=== PATIENT | male | born 1965 | race Caucasian/White ===

== ENCOUNTER 2016-10-28 03:36 | Observation (INO) | payer BC ==
[2016-10-28] MEDS ORDERED: HYDROmorphone* 1 MG/ML 1 ML CARPUJECT IV ONE (03:45)
[2016-10-28] MEDS ORDERED: Ondansetron INJ* 2 MG/ML VIAL IV ONE (03:45)
[2016-10-28] MEDS ORDERED: LORazepam INJ* 2 MG/ML 1 ML VIAL IV PUSH ONE (03:49)
[2016-10-28] MEDS ORDERED: Pantoprazole IV* 40 MG IV ONE (03:50)
[2016-10-28] MEDS: NS 0.9% 1000 ML* 2,000 ML IV ONE ×2 (03:55→07:38)
[2016-10-28 04:02] LABS: Hematocrit 43 % (42-52); Hemoglobin 14.9 g/dl (14.0-18.0); Mean Corpuscular HGB Conc 35 g/dl (31-36); Mean Corpuscular Hemoglobin 29 pg (27-31); Mean Corpuscular Volume 82 fL (80-94); Mean Platelet Volume 7 um3 (7.4-10.4); Red Cell Distribution Width 15 % (10.5-15); White Blood Count 10.2 10^3/ul (3.5-10.8)
[2016-10-28 04:30] LABS: ALT 14 U/L (7-52); AST 15 U/L (13-39); Albumin 3.9 g/dL (3.2-5.2); Alkaline Phosphatase 74 U/L (34-104); Amylase 31 U/L (29-103); Anion Gap 6 mmol/L (2-11); BUN/Creatinine Ratio 8.5 (8-20); Blood Urea Nitrogen 10 mg/dL (6-24); CO2 Carbon Dioxide 27 mmol/L (22-32); Calcium 9.1 mg/dL (8.6-10.3); Chloride 100 mmol/L (101-111); EGFR African American 85.2 (>60); EGFR Non-African American 66.3 (>60); Glucose 104 mg/dL (70-100); Lipase < 10 U/L (11.0-82.0); Potassium 3.5 mmol/L (3.5-5.0); Sodium 133 mmol/L (133-145); Total Protein 6.9 g/dL (6.4-8.9)
[2016-10-28 04:31] LABS: Troponin I 0.01 ng/mL (<0.04)
[2016-10-28] MEDS ORDERED: Iohexol 350* (CONTRAST) 500 ML MDV IV ONE (04:33)
[2016-10-28 04:39] LABS: TSH (Thyroid Stimulating Horm) 4.61 mcIU/mL (0.34-5.60)
--- NOTE | 2016-10-28 07:33 | ED ---
Kimberly Marie Emily, scribed for Darrell Kapoor MD on 10/28/16 at 0443 . HPI Chest Pain - HPI Summary HPI Summary: This patient is a 51 year old M BIBA to [facility] accompanied by fiance with a chief complaint of CP since 0000. Was awoken at midnight by pain, which worsened MANAGER LIGHTING. Describes the pain much higher and different pain than previous GERD. The CC is described as pulsating, pressing pain in central chest which does not radiate to back. The patient rates the pain 10/10 in severity. Patient denies nausea, SOB, melena, hematochezia, abd pain, and tearing sensation. PMHx includes HTN, indigestion. FHx of heart disease. Patient denies hx of NM. - History of Current Complaint Chief Complaint: EDChestPainROMI Time Seen by Provider: 10/28/16 03:45 Hx Obtained From: Patient, EMS Onset/Duration: Started Hours Ago, Still Present Timing: Constant, Lasting Hours Initial Severity: Severe Current Severity: Severe Pain Intensity: 10 Pain Scale Used: 0-10 Numeric Chest Pain Location: Discrete at: - Central Character: Pressure/Squeezing, Other: - Pulsating Associated Signs and Symptoms: Positive: Other: - Negative nausea, SOB, melena, hematochezia, abd pain, and tearing sensation. - Allergy/Home Medications Allergies/Adverse Reactions: Allergies Allergy/AdvReac Type Severity Reaction Status Date / Time No Known Allergies Allergy Verified 12/23/14 10:49 PMH/Surg Hx/FS Hx/Imm Hx Previously Healthy: Yes Endocrine/Hematology History: Denies: Hx Diabetes, Hx Thyroid Disease Cardiovascular History: Reports: Hx Hypertension Respiratory History: Denies: Hx Asthma, Hx Chronic Obstructive Pulmonary Disease (COPD) GI History: Reports: Hx Ulcer - gerd History: Denies: Hx Dialysis, Hx Renal Disease Infectious Disease History: No Infectious Disease History: Denies: Hx Hepatitis, Hx Human Immunodeficiency Virus (HIV), History Other Infectious Disease, Traveled Outside the [place] in Last 30 Days - Family History Known Family History: Negative: Cardiac Disease, Diabetes - Social History Occupation: Employed Part-time Lives: With Family Alcohol Use: Rare Substance Use Type: Reports: None Hx Tobacco Use: Yes Smoking Status (MU): Light Every Day Tobacco Smoker Type: Cigarettes Amount Used/How Often: 1 ppd Review of Systems Positive: Chest Pain, Other - Negative tearing sensation Negative: Shortness Of Breath Positive: Other - Negative melena, hematochezia. Negative: Abdominal Pain, Nausea All Other Systems Reviewed And Are Negative: Yes Physical Exam - Summary Physical Exam Summary: The patient is well-nourished in moderate pain. The skin is warm and skin color reflects adequate perfusion. Diaphoretic. HEENT: The head is normocephalic and atraumatic. The pupils are equal and reactive. The conjunctivae are clear and without drainage. Nares are patent and without drainage. Mouth reveals moist mucous membranes and the throat is without erythema and exudate. The external ears are intact. Neck is supple with full range of motion and non-tender. There are no carotid bruits. There is no neck vein distension. Respiratory: Chest is non-tender. Lungs are clear to auscultation and breath sounds are symmetrical and equal. Cardiovascular: Heart is regular rate and rhythm. There is no murmur or rub auscultated. There is no peripheral edema and pulses are symmetrical and equal. No reproducible pain. No chest wall pain. Abdomen: The abdomen is soft and non-tender. There are normal bowel sounds heard in all four quadrants and there is no organomegaly palpated. No bruit. Musculoskeletal: There is no back pain noted. Extremities are non-tender with full range of motion. There is good capillary refill. There is no peripheral edema or calf tenderness elicited. Neurological: Patient is alert and oriented to person, place and time. The patient has symmetrical motor strength in all four extremities. Cranial nerves are grossly intact. Deep tendon reflexes are symmetrical and equal in all four extremities. Psychiatric: The patient has an appropriate affect and does not exhibit any anxiety or depression. Triage Information Reviewed: Yes Vital Signs On Initial Exam: Initial Vitals Temp Pulse Resp BP Pulse Ox 98.6 F 85 17 118/70 96 10/28/16 03:37 10/28/16 03:37 10/28/16 03:37 10/28/16 03:37 10/28/16 03:37 Vital Signs Reviewed: Yes Diagnostics - Vital Signs Vital Signs Temp Pulse Resp BP Pulse Ox 10/28/16 04:04 22 10/28/16 03:57 21 10/28/16 03:37 98.6 F 85 17 118/70 96 - Laboratory Lab Results: Lab Results 0910/28/16 10/28/16 Range/Units 03:42 03:42 03:42 WBC 10.2 (3.5-10.8) 10^3/ul RBC 5.20 (4.0-5.4) 10^6/ul Hgb 14.9 (14.0-18.0) g/dl Hct 43 (42-52) % MCV 82 (80-94) fL MCH 29 (27-31) pg MCHC 35 (31-36) g/dl RDW 15 (10.5-15) % Plt Count 340 (150-450) 10^3/ul MPV 7 L (7.4-10.4) um3 Neut % (Auto) 71.7 (38-83) % Lymph % (Auto) 16.2 L (25-47) % [place] % (Auto) 9.3 H (1-9) % Eos % (Auto) 1.6 (0-6) % Baso % (Auto) 1.2 (0-2) % Absolute Neuts (auto) 7.3 (1.5-7.7) 10^3/ul Absolute Lymphs (auto) 1.7 (1.0-4.8) 10^3/ul Absolute Monos (auto) 1.0 H (0-0.8) 10^3/ul Absolute Eos (auto) 0.2 (0-0.6) 10^3/ul Absolute Basos (auto) 0.1 (0-0.2) 10^3/ul Absolute Nucleated RBC 0 10^3/ul Nucleated RBC % 0 INR (Anticoag Therapy) (0.89-1.11) APTT (26.0-36.3) seconds Sodium 133 (133-145) mmol/L Potassium 3.5 (3.5-5.0) mmol/L Chloride 100 L (101-111) mmol/L Carbon Dioxide 27 (22-32) mmol/L Anion Gap 6 (2-11) mmol/L BUN 10 (6-24) mg/dL Creatinine 1.17 (0.67-1.17) mg/dL Est GFR ( Amer) 85.2 (>60) Est GFR (Non-Af Amer) 66.3 (>60) BUN/Creatinine Ratio 8.5 (8-20) Glucose 104 H (70-100) mg/dL Lactic Acid (0.5-2.0) mmol/L Calcium 9.1 (8.6-10.3) mg/dL Total Bilirubin 0.60 (0.2-1.0) mg/dL AST 15 (13-39) U/L ALT 14 (7-52) U/L Alkaline Phosphatase 74 (34-104) U/L Troponin I 0.01 (<0.04) ng/mL B-Natriuretic Peptide 17 ( - 100) pg/mL Total Protein 6.9 (6.4-8.9) g/dL Albumin 3.9 (3.2-5.2) g/dL Globulin 3.0 (2-4) g/dL Albumin/Globulin Ratio 1.3 (1-3) Amylase 31 (29-103) U/L Lipase < 10 L (11.0-82.0) U/L TSH 4.61 (0.34-5.60) mcIU/mL 10/28/16 10/28/16 Range/Units 03:42 03:42 WBC (3.5-10.8) 10^3/ul RBC (4.0-5.4) 10^6/ul Hgb (14.0-18.0) g/dl Hct (42-52) % MCV (80-94) fL MCH (27-31) pg MCHC (31-36) g/dl RDW (10.5-15) % Plt Count (150-450) 10^3/ul MPV (7.4-10.4) um3 Neut % (Auto) (38-83) % Lymph % (Auto) (25-47) % [place] % (Auto) (1-9) % Eos % (Auto) (0-6) % Baso % (Auto) (0-2) % Absolute Neuts (auto) (1.5-7.7) 10^3/ul Absolute Lymphs (auto) (1.0-4.8) 10^3/ul Absolute Monos (auto) (0-0.8) 10^3/ul Absolute Eos (auto) (0-0.6) 10^3/ul Absolute Basos (auto) (0-0.2) 10^3/ul Absolute Nucleated RBC 10^3/ul Nucleated RBC % INR (Anticoag Therapy) 0.92 (0.89-1.11) APTT 27.9 (26.0-36.3) seconds Sodium (133-145) mmol/L Potassium (3.5-5.0) mmol/L Chloride (101-111) mmol/L Carbon Dioxide (22-32) mmol/L Anion Gap (2-11) mmol/L BUN (6-24) mg/dL Creatinine (0.67-1.17) mg/dL Est GFR ( Amer) (>60) Est GFR (Non-Af Amer) (>60) BUN/Creatinine Ratio (8-20) Glucose (70-100) mg/dL Lactic Acid 1.3 (0.5-2.0) mmol/L Calcium (8.6-10.3) mg/dL Total Bilirubin (0.2-1.0) mg/dL AST (13-39) U/L ALT (7-52) U/L Alkaline Phosphatase (34-104) U/L Troponin I (<0.04) ng/mL B-Natriuretic Peptide ( - 100) pg/mL Total Protein (6.4-8.9) g/dL Albumin (3.2-5.2) g/dL Globulin (2-4) g/dL Albumin/Globulin Ratio (1-3) Amylase (29-103) U/L Lipase (11.0-82.0) U/L TSH (0.34-5.60) mcIU/mL Result Diagrams: 10/28/16 03:42 10/28/16 03:42 Lab Statement: Any lab studies that have been ordered have been reviewed, and results considered in the medical decision making process. - Radiology CXR Xray Interpretation: No Acute Changes Radiology Interpretation Completed By: ED Physician - CT Chest A/P CTA CT Interpretation: No Acute Changes CT Interpretation Completed By: Radiologist - Chest: No pulmonary embolism. No aortic dissection or aneurysm. No pneumonia or pleural effusions. Minimal emphysematous changes. Abdomen/Pelvis: No aortic dissection or aneurysm. No bowel obstruction, colitis, frees fluid or free air. Normal appendix. Unremarkable pancreas, kidneys and gallbladder. - EKG 0336 Cardiac Rate: NL - 83 PM EKG Rhythm: Sinus Rhythm EKG Interpretation: No STEMI, no ST elevation 0356 Cardiac Rate: NL - 78 BPM EKG Rhythm: Sinus Rhythm EKG Interpretation: Nml axis. Non-specific changes in 2, 3, and ABL.No ST elevation. Re-Evaluation - Re-Evaluation First Eval Re-Evaluation Time: 06:56 Change: Improved - Pt is pain free. Reviewed lab results with patient's delisae. Chest Pain Course/Dx - Course Course Of Treatment: This patient is a 51 year old M BIBA to [facility] accompanied by fiance with a chief complaint of CP since 0000. Was awoken at midnight by pain, which worsened MANAGER LIGHTING. Describes the pain much higher and different pain than previous GERD. The CC is described as pulsating, pressing pain in central chest which does not radiate to back. The patient rates the pain 10/10 in severity. Patient denies nausea, SOB, melena, hematochezia, abd pain, and tearing sensation. PMHx includes HTN, indigestion. FHx of heart disease. Patient denies hx of NM. Physical Exam Findings. Moderate pain. Diaphoretic. No chest wall pain. No reproducible pain. No abd bruit. Medical Decision Making. An EKG at 0336 reveals no STEMI, nml sinus rhythm at 83 BPM, and no ST elevation. An EKG at 0356 reveals nml sinus rhythm at 78 BPM, nml axis, non- specific changes in 2,3, and ABL, and no ST elevation. CXR read by ED physician is normal. Chest A/P CTA read by radiologist. Chest: No pulmonary embolism. No aortic dissection or aneurysm. No pneumonia or pleural effusions. Minimal emphysematous changes. Abdomen/Pelvis: No aortic dissection or aneurysm. No bowel obstruction, colitis, frees fluid or free air. Normal appendix. Unremarkable pancreas, kidneys and gallbladder. ED physician has reviewed this radiology report and agrees. In the ED course the patient was given Diaudid, Ativan inj, Zofran inj,Protonix IV, and fluids. We discussed patient care with Dr. Jacobs (hospitalist) at 0658 and they recommended to admit the patient. Patient will be admitted. The patient is agreeable with this plan. - Chest Pain Differential Diagnosis/HQI/PQRI: Acute NM, ACS, Aortic Aneurysm, CHF, GI Disease , Pulmonary Embolism - Diagnoses Provider Diagnoses: Chest pain - Provider Notifications Discussed Care Of Patient With: Sonja Jacobs - [facility] Time Discussed With Above Provider: 06:58 Instructed by Provider To: Admit As Inpatient - Critical Care Time Critical Care Time: 30-74 min - 30 minutes Discharge - Discharge Plan Condition: Stable Disposition: ADMITTED TO [facility] Referrals: Sharath Riojas MD [Primary Care Provider] - The documentation as recorded by the Kimberly santizo Emily accurately reflects the service I personally performed and the decisions made by me, Darrell Kapoor MD.
[2016-10-28] MEDS ORDERED: Acetaminophen TAB* 325 MG PO PRN (08:25)
[2016-10-28] MEDS ORDERED: Ibuprofen TAB* 400 MG PO PRN (08:33)
[2016-10-28] MEDS ORDERED: Mouth Piece, Nicotine* 1 EACH CARTRIDGE INH PRN (08:41)
[2016-10-28] MEDS ORDERED: Nicotine Inhaler* 10 MG AMP INH PRN (08:41)
--- NOTE | 2016-10-28 08:59 | RAD ---
INDICATION: Midsternal chest pain COMPARISON: None. TECHNIQUE: Single AP portable view of the chest was obtained. FINDINGS: Image quality is compromised due to the relative inferiority of a portable chest x-ray. The heart and mediastinum exhibit normal size and contour. The lungs are grossly clear. There is no evidence of a large pleural effusion. Visualized bones are normal for the patient's age. IMPRESSION: No radiographic evidence for acute cardiopulmonary abnormality on this portable chest x-ray.
[2016-10-28 09:03] LABS: Cholesterol 152 mg/dL; HDL Cholesterol 32.9 mg/dL; LDL Cholesterol 99 mg/dL; Triglycerides 102 mg/dL
--- NOTE | 2016-10-28 09:25 | RAD ---
STUDY: CT angiography of the chest, abdomen and pelvis. INDICATION: Mid chest pain that woke the patient from sleep COMPARISON: None. TECHNIQUE: Multidetector CT angiography of the chest, abdomen and pelvis were obtained from the lung apices to the ischial tuberosities after the intravenous injection of 100 mL Omnipaque 350. Reformats were created in the coronal and sagittal planes. 3-D vascular imaging was created from the source images and reviewed as well. ANGIOGRAPHIC FINDINGS: There are no filling defects of the central or lobular pulmonary arteries to indicate acute pulmonary embolism. There is no pathologic aneurysmal dilatation of the thoracic aorta or appearance of acute aortic dissection. Best depicted on the sagittal plane images (image 64 of 126) there is narrowing at the origin of the left common carotid artery by approximately 50% relative to the more distal portion of the vessel. There is calcified atherosclerosis of the infrarenal abdominal aorta but patency is maintained. There is no pathologic aneurysmal dilatation or appearance of acute dissection. The branch vessels off of the abdominal aorta are adequately patent. In-line flow is seen as far as the bilateral common femoral arteries. NON ANGIOGRAPHIC FINDINGS: Chest: There is mild increased density of the pulmonary parenchyma diffusely. There is no focal consolidation or suspicious nodules. Hypoventilatory changes are noted the bilateral dependent lung bases. There are centrilobular emphysematous changes at the lung apices. There is no mediastinal or hilar lymphadenopathy. The heart is grossly normal in appearance. Abdomen \T\ Pelvis: The liver, spleen, pancreas and adrenal glands are grossly normal in appearance. The gallbladder is normal. The kidneys are normal in appearance without focal mass, calcification or signs of hydronephrosis. The renal cortices enhance promptly and symmetrically on arterial phase imaging. Evaluation of the gastrointestinal tract is limited without oral contrast. The small and large bowel are not distended. The appendix is normal in appearance with gas partially filling the lumen (axial image 203). There is no gross retroperitoneal or mesenteric lymphadenopathy. The pelvic viscera is normal in appearance. Multilevel degenerative changes of the thoracic and lumbar spine include mild loss of intervertebral disc height.There are no sinister bone lesions. IMPRESSION: 1. No CT evidence of centrilobular pulmonary embolism or acute aortic dissection. 2. Potential 50% narrowing at the origin of the left common carotid artery which exhibits a chronic appearance. Please correlate to signs or symptoms of carotid artery insufficiency. On a nonemergent basis correlation can be made to carotid ultrasound to determine if there are signs of relatively attenuated flow in the left carotid artery compared to the right. 3. Additional chronic and degenerative changes noted in the body the report unlikely to be directly related to the patient's acute presentation.
[2016-10-28] MEDS: Omeprazole CAP* 20 MG PO SCH (11:33)
[2016-10-28] MEDS: Hydrochlorothiazide TAB* 25 MG PO SCH (11:33)
--- NOTE | 2016-10-28 11:55 | HP ---
CC: Dr. Riojas * HISTORY AND PHYSICAL: DATE OF ADMISSION: 10/28/16 PRIMARY CARE PROVIDER: Dr. Riojas. CHIEF COMPLAINT: Chest pain. HISTORY OF PRESENT ILLNESS: Mr. Rodríguez is a 51-year-old male who has a history of hypertension, hyperlipidemia, multiple sclerosis that had not been treated in many years and ongoing tobacco abuse. He presents to the emergency room with complaints of severe chest pain. The patient states at approximately midnight on the day of admission he woke up with what he felt was heartburn. By approximately 2 a.m. he started feeling as if he is having very strong squeezing contractions in his chest and neck. The patient states that it has became so severe that he presented to the emergency room at approximately 3:30. The patient took morphine and nitroglycerin without any improvement in his pain. In the ER he also received Dilaudid and Ativan. The patient's significant other states that when he received the Dilaudid the pain went away. The concern initially was that the patient may have had been an aortic dissection; therefore, he went emergently for CTA of the chest, abdomen, and pelvis which was reportedly negative for dissection. The patient states he has never had any pain like this in the past. He does have a history of recent long- distance travel, in that he and his significant other recently went to the [facility] approximately 3 weeks ago. He denies any shortness of breath with the chest discomfort that he was having. He denied any nausea. He was noted to be markedly diaphoretic. PAST MEDICAL HISTORY: 1. Hypertension. 2. Hyperlipidemia. 3. History of multiple sclerosis. 4. Ongoing tobacco abuse. 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 MEDICATIONS: 1. Aspirin 81 mg p.o. daily. 2. Protonix 40 mg p.o. daily. 3. Hydrochlorothiazide 25 mg p.o. daily. 4. Ibuprofen 400 mg p.o. daily p.r.n. pain. 5. Lipitor 20 mg p.o. daily. ALLERGIES: No known drug allergies. FAMILY HISTORY: Mom is reportedly living, but he is unaware of her health as he has not in contact with her. Dad is living, he has hereditary hemorrhagic telangiectasia. SOCIAL HISTORY: The patient smokes 1 pack per day and has done so for the last 30 years. He does not drink alcohol routinely. 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 He has a domestic partner. Her name is Glo Lu. He has one child from a previous relationship who is 18 years old. REVIEW OF SYSTEMS: Complete 11-system review of systems is obtained. Pertinent positives and negatives are as per HPI and otherwise negative. PHYSICAL EXAMINATION GENERAL: The patient is a well-developed, middle aged male, sitting up in the stretcher; drowsy, but arousable, in no acute distress. VITAL SIGNS: Blood pressure 147/90, pulse 90, respirations 19, temp 98.6, O2 sat 99% on 2 L. HEENT: Pupils equally round and reactive to light. Extraocular muscles are intact. Oropharynx is clear. Oral mucosa is moist. There is no submandibular, cervical, or supraclavicular adenopathy. Thyroid is not enlarged. No thyroid nodules are noted. The patient does have dressing over a portion of the left ear helix. PULMONARY: Lungs are clear to auscultation, but breath sounds are diminished throughout. CARDIAC: Normal S1 and S2. Regular rate and rhythm. I do not appreciate any murmurs. There is no lower extremity edema. There is no pain to palpation of the sternum or costochondral joints. ABDOMEN: Bowel sounds are present. Abdomen is soft, nontender, nondistended. MUSCULOSKELETAL: There is no cyanosis or clubbing of the digits. There is full active range of motion of all 4 extremities. NEURO: Cranial nerves II through XII are grossly intact. Sensation is intact to light touch throughout. Strength is 5/5 and symmetric in both upper and lower extremities bilaterally. SKIN: Warm and dry. There are no rashes. PSYCH: The patient is drowsy, but is able to stay awake during our conversation and answered questions appropriately. LABORATORY DATA/DIAGNOSTIC STUDIES: WBC 10.2, hemoglobin 14.9, hematocrit 43, platelets 340. INR 0.92. Sodium 133, potassium 3.5, chloride 100, CO2 27, BUN 10, creatinine 1.17, glucose 104, lactic acid 1.3, calcium 9.1, bilirubin 0.6, AST 15, ALT 14, alk phos 74. Troponin 0.01 x2. BNP 17, albumin 3.9, amylase 31 , lipase is less than 10, TSH 4.61. EKG reveals normal sinus rhythm without any acute ST-T wave abnormalities. Chest x- ray to my interpretation shows possible atelectasis versus infiltrate at the right base. CTA of the chest, abdomen, and pelvis no pulmonary embolism was identified. No aortic dissection or aneurysm is identified. There is no pneumonia or pleural effusions. There is minimal emphysematous change. There is no aortic dissection or aneurysm noted of the abdominal aorta. No bowel obstruction colitis, free fluid, or free air is noted. ASSESSMENT AND PLAN: Mr. Rodríguez is a 51-year-old male with a history of hypertension, hyperlipidemia, and ongoing tobacco abuse. He presents to the emergency room with complaints of severe chest pain with 2 negative troponins and normal EKG. 1. Chest pain. The etiology of this is likely noncardiac in nature. Patient was ruled out for dissection, pulmonary embolism, and NE essentially at this point. The patient will have one further troponin obtained at approximately 9: 45 this morning. My suspicion is the patient's pain was likely gastrointestinal in nature, however, the patient does have significant risk factors for coronary artery disease in his WILLA risk score is 3 giving him a 13 % risk at 14 days of all cause mortality new or recurrent NE or severe recurrent ischemia requiring urgent revascularization. I have recommended that the patient that he be admitted for a stress test on Sunday. Patient is willing to be admitted today to be monitored overnight, but will reassess tomorrow morning if he is willing to stay another night to get a stress test. In the meantime, the patient will be continued on his usual dose of Lipitor, aspirin, and hydrochlorothiazide for blood pressure control. 2. Hypertension. The patient's blood pressure is mildly elevated at this point. He will be resumed on his hydrochlorothiazide and his blood pressure will be monitored. 3. Hyperlipidemia. Lipid profile will be added to the labs obtained in the ER. He will be continued on his usual dose of Lipitor. 4. Tobacco abuse. Patient will have nicotine replacement with a nicotine inhaler. 5. DVT prophylaxis. According to the Adult Thrombosis Prophylaxis Risk Factor Assessment Guide, the patient has a total risk factor score of 2 making him moderate risk. Patient will utilize ambulation as DVT prophylaxis. 6. Code status is full. Patient's significant other would be his surrogate decision maker. TIME SPENT: 65 minutes was spent admitting this patient. [id number]/[facility] #: [id number] [facility]OSPITALCindy
[2016-10-28] MEDS ORDERED: Atorvastatin* 20 MG TAB PO SCH (21:00)
[2016-10-29 08:43] VITALS: BP 152/90
[2016-10-29] MEDS: Omeprazole CAP* 20 MG PO SCH (08:44)
[2016-10-29] MEDS: Hydrochlorothiazide TAB* 25 MG PO SCH (08:44)
[2016-10-29] MEDS ORDERED: Aspirin EC Low Dose* 81 MG TAB.EC PO SCH (09:00)
--- NOTE | 2016-10-30 05:55 | DS ---
CC: Dr. Riojas * DISCHARGE SUMMARY: DATE OF ADMISSION: 10/28/16 DATE OF DISCHARGE: 10/29/16 PRIMARY CARE PROVIDER: Dr. Riojas. PRINCIPAL DIAGNOSIS: Chest pain. SECONDARY DIAGNOSES: 1. Hypertension. 2. Hyperlipidemia. 3. Tobacco abuse. DISCHARGE MEDICATIONS: 1. Aspirin 81 mg p.o. daily. 2. Protonix 40 mg p.o. daily. 3. Hydrochlorothiazide 25 mg p.o. daily. 4. Ibuprofen 400 mg p.o. daily p.r.n. pain. 5. Lipitor 20 mg p.o. daily. HOSPITAL COURSE: Mr. Rodríguez is a 51-year-old male, who presented to emergency room on the database developer of 10/28/16 with complaints of severe centrally located chest pain. The patient was ruled out for WA and pulmonary embolism. The patient reluctantly agreed to being admitted for monitoring overnight to ensure the chest pain does not come back. At approximately 8:30, I was notified by the patient's nurse that the patient wished to leave the hospital against medical advice. I did talk to him about this the day prior, as he informed me that he would not want to stay all weekend to wait for stress test on Sunday. The patient unfortunately left the hospital without me being able to see him on the day of discharge. The patient's nurse did recommend that he follow up on the chest pain and have an outpatient stress test performed. FOLLOWUP CONCERNS: The patient is discharged against medical advice today, 12/05. ACTIVITY LEVEL: As tolerated. DIET: Low fat. CONDITION ON DISCHARGE: Stable. TIME SPENT: Ten minutes was spent on this discharge. [id number]/[facility] #: [id number] MTDCindy
== END 2016-10-29 09:10 | disposition left against medical advice (07) ==
LOC: ED 03:36 → MEDTELE 08:25
PROVIDERS: ADMIT Hospitalist; ATTEND Hospitalist
DX: R07.89 Other chest pain (principal); I10 Essential (primary) hypertension; E78.5 Hyperlipidemia, unspecified; F17.210 Nicotine dependence, cigarettes, uncomplicated
CPT/HCPCS: 36415; 71010; 71275; 74174; 80053; 80061; 82150; 83605; 83690; 83880; 84443; 84484; 85025; 85610; 85730; 93005; 96361; 96374; 96375; 99291; A9270-GY; G0378; J1170; J2060; J2405; Q9967